=== PATIENT | female | born 1950 ===

== ENCOUNTER 2018-02-06 16:01 | Emergency (ER) | payer MEDICARE, OTHER ==
[2018-02-06] MEDS ORDERED: Lidocaine 1% 5ml(IM or SUTURE)(PAIN CLINIC) IJ ONE (16:15)
[2018-02-06] MEDS ORDERED: Lidocaine 1% 5ml(IM or SUTURE)(PAIN CLINIC) ONE (16:17)
--- NOTE | 2018-02-06 16:50 | ED Physician Documentation ---
General Adult - HISTORIAN Historian: patient - HPI Stated Complaint: fish hook in finger Chief Complaint: General Adult Severity: mild Further Comments: yes (Pt is a 67 yo female with a fish hook in her distal R index finger. Pt doesn't know her tetanus status but declines tetanus shot.) - ROS CONST: no problems EYES/ENT: none CVS/RESP: none GI/: none MS/SKIN/LYMPH: other (fish hook in R index finger) - PAST HX Past History: none Surgeries/Procedures: BTL Allergies/Adverse Reactions: Allergies Allergy/AdvReac Type Severity Reaction Status Date / Time No Known Allergies Allergy Verified 02/06/18 16:46 Home Medications: Ambulatory Orders Medication Instructions Recorded Cephalexin [Keflex] 500 mg PO Q8H #15 capsule 02/06/18 - SOCIAL HX Smoking History: other (unk) - FAMILY HX Family History: No - REVIEWED ASSESSMENTS Nursing Assessment Reviewed: Yes Vitals Reviewed: Yes Progress - Progress Progress: R index finger and fish hook cleansed with Hybiclens Lidocaine 1% fish hook removed R hand soaked in Hybiclens/water solution. Pt declines Tetanus shot. Rx Keflex 500 mg. Take one 3 times daily for 5 days. ED Results Lab/Radiology - Orders Orders: ED Orders Category Date Time Status Lidocaine 1% 5ml(IM or SUTURE) [Xylocaine] Med 02/06/18 16:17 Discontinued 50 mg .ROUTE .STK-MED ONE Lidocaine 1% 5ml(IM or SUTURE) [Xylocaine] Med 02/06/18 16:15 Discontinued 50 mg IJ NOW ONE General Adult Physical Exam - PHYSICAL EXAM GENERAL APPEARANCE: mild distress NECK: normal inspection, supple RESPIRATORY: no resp distress, chest non-tender CVS: reg rate & rhythm, heart sounds normal BACK: normal inspection SKIN: other (foreign body (fish hook) in dorsal R index finger, distal phalanx.) EXTREMITIES: normal range of motion, other (foreign body (fish hook) in dorsal R index finger, distal phalanx.) NEURO: oriented X3, motor nml, sensation nml Discharge Clincal Impression: foreign body (fish hook) R index finger Prescriptions: Cephalexin [Keflex] 500 mg PO Q8H #15 capsule Referrals: Flavia Aleman MD [Primary Care Provider] - Condition: Good Disposition: 01 HOME, SELF-CARE Decision to Admit: NO Decision Time: 17:05
[2018-02-06 17:18] VITALS: BP 150/70
== END 2018-02-06 17:05 | disposition home or self-care (01) ==
LOC: ED 16:01
DX: S60.450A Superficial foreign body of right index finger, initial encounter (principal); X58.XXXA Exposure to other specified factors, initial encounter; Y92.9 Unspecified place or not applicable; Y93.9 Activity, unspecified; Y99.9 Unspecified external cause status
CPT/HCPCS: 99282